=== PATIENT | female | born 1950 | race Caucasian/White ===

== ENCOUNTER 2017-05-02 14:48 | Emergency (ER) | payer MEDICARE, OTHER ==
[~2017-05-02] VITALS: Ht 152.4 cm; Wt 66.7 kg
[~2017-05-02 14:48] MED LIST: ALPR0.5T7 PO; AML5T PO; MET50T PO; QUET100T38 PO; RIV15T PO; VENL150C PO
[2017-05-02 15:18] VITALS: BP 142/84
== END 2017-05-02 18:23 | disposition left against medical advice (07) ==
LOC: ER 14:57
DX: M79.672 Pain in left foot (principal); Z53.21 Procedure and treatment not carried out due to patient leaving prior to being seen by health care provider

== ENCOUNTER 2018-03-14 09:59 | Inpatient (IN) | payer MEDICARE, OTHER ==
[~2018-03-14] VITALS: Ht 157.5 cm; Wt 64.0 kg
[~2018-03-14 09:59] MED LIST changes: -ALPR0.5T7 PO; -AML5T PO; -MET50T PO; -QUET100T38 PO; -RIV15T PO; -VENL150C PO; +WARF6TAB21 PO
[2018-03-14 11:02] LABS: Basophils # (auto) 0 uL; Basophils % (auto) 0.8 % (0.0-2.0); Eosinophils # (auto) 0.1 uL; Eosinophils % (auto) 1.5 % (0.0-7.0); Hematocrit 49.3 % (36.0-46.0); Hemoglobin 15.7 g/dL (12.2-16.2); Lymphocytes % (auto) 16.8 % (10.0-50.0); Mean Corpuscular Hemoglobin 27.3 pg (28.0-32.0); Mean Corpuscular Hgb Conc. 31.8 g/dL (32.0-36.0); Mean Corpuscular Volume 86.1 fL (80.0-100.0); Monocytes # (auto) 0.6 uL; Monocytes % (auto) 10.7 % (0.0-12.0); Neutrophils # (auto) 4.2 uL; Neutrophils % (auto) 70.2 % (37.0-80.0); Nucleated Red Blood Cells % 0.4 %; Platelet Count (auto) 193 10^3/uL (140-450); Red Blood Cells 5.73 10^6/uL (4.0-5.20); Red Cell Distribution Width 18.6 % (11.8-14.3)
[2018-03-14 11:20] LABS: Albumin 3.3 g/dL (3.4-5.0); Anion Gap 4 (5-15); Aspartate Aminotransferase 9 U/L (15-37); BUN/Creatinine Ratio 12.2; Blood Urea Nitrogen 6 mg/dL (7-18); Calcium 8.7 mg/dL (8.5-10.1); Carbon Dioxide 35 mmol/L (21-32); Chloride 99 mmol/L (98-107); GFR African American 162 mL/min; GFR Non-African American 134 mL/min; Glucose 117 mg/dL (74-106); Sodium 138 mmol/L (136-145)
[2018-03-14 11:25] LABS: Alanine Aminotransferase 10 U/L (13-56); Alkaline Phosphatase 125 U/L (45-117); Bilirubin, Total 0.5 mg/dL (0.2-1.0); Total Protein 7.2 g/dL (6.4-8.2)
[2018-03-14] MEDS ORDERED: IPRATROPIUM BROM 0.5 MG/2.5ML INH SOL NEB ONE (13:45)
[2018-03-14] MEDS ORDERED: ALBUTEROL SULF 2.5 MG/0.5ML(0.5%) NEB SOLN NEB ONE (13:45)
[2018-03-14] MEDS ORDERED: SODIUM CHLORIDE 0.9% 1,000 ML IV ONE (13:45)
[2018-03-14 14:40] LABS: INR 1.06 (0.9-1.15); Partial Thromboplastin Time 28.9 sec (23.78-33.04); Prothrombin Time 11.3 sec (9.27-12.13)
[2018-03-14] MEDS ORDERED: MORPHINE SULFATE 4 MG/ML SYR/VIAL IV PRN (15:30)
[2018-03-14] MEDS ORDERED: MORPHINE SULFATE 4 MG/ML SYR/VIAL IV ONE (15:30)
[2018-03-14] MEDS ORDERED: ENOXAPARIN SOD 60 MG/0.6 ML SYRINGE SC ONE (15:30)
[2018-03-14] MEDS ORDERED: NITROGLYCERIN 0.4 MG SL TAB SL PRN (15:30)
[2018-03-14] MEDS ORDERED: ONDANSETRON HCL 4 MG/2 ML VIAL IV ONE (15:30)
[2018-03-14 16:05] LABS: Urine Bacteria FEW /hpf (None Seen); Urine Blood Negative /uL (Negative); Urine Specific Gravity 1.012 (1.001-1.035); Urine WBC 9 /hpf (0 - 5)
[2018-03-14] MEDS ORDERED: WARFARIN SODIUM 5 MG TAB PO ONE (17:00)
[2018-03-14] MEDS: HYDROcodone-ACET 5/325MG TAB PO PRN (17:19)
[2018-03-14] MEDS ORDERED: IOHEXOL 350 MG/ML 100ML IJ ONE (19:40)
[2018-03-14] MEDS ORDERED: cefTRIAXone 1GM/50ML D5W 50 ML IV ONE (19:45)
[2018-03-14] MEDS ORDERED: ALBUTEROL SULF 2.5 MG/0.5ML(0.5%) NEB SOLN NEB PRN (19:45)
[2018-03-14 19:51] VITALS: BP 146/34
[2018-03-14 22:00] VITALS: BP 140/75
[2018-03-14] MEDS: MORPHINE SULFATE 4 MG/ML SYR/VIAL IV PRN (22:43)
[2018-03-14] MEDS: ENOXAPARIN SOD 60 MG/0.6 ML SYRINGE SC SCH (22:43)
[2018-03-14] MEDS: CLINDAMYCIN 600MG IV 50 ML IV SCH (22:43)
[2018-03-14] MEDS: TEMAZEPAM 15 MG CAP PO PRN (22:44)
[2018-03-14 23:09] VITALS: BP 140/75
[2018-03-15] MEDS ORDERED: INFLUENZA QUAD 2018-2019 0.5 ML SYRG IM ONE
[2018-03-15] MEDS ORDERED: QUET300T14 PO (00:03)
[2018-03-15] MEDS ORDERED: ALBUAER3 IN (00:03)
[2018-03-15] MEDS ORDERED: METO-169 PO (00:03)
[2018-03-15] MEDS ORDERED: VENL150C2 PO (00:03)
[2018-03-15] MEDS: IPRATROPIUM BROM 0.5 MG/2.5ML INH SOL NEB SCH ×4 (00:21→19:32)
[2018-03-15] MEDS: ALBUTEROL SULF 2.5 MG/0.5ML(0.5%) NEB SOLN NEB SCH ×4 (00:21→19:32)
[2018-03-15] MEDS: MORPHINE SULFATE 4 MG/ML SYR/VIAL IV PRN ×5 (04:33→22:01)
[2018-03-15 05:00] VITALS: BP 143/63
[2018-03-15] MEDS: CLINDAMYCIN 600MG IV 50 ML IV SCH (05:57)
[2018-03-15] MEDS: ONDANSETRON HCL 4 MG/2 ML VIAL IV PRN (06:20)
[2018-03-15 07:53] LABS: Cholesterol 137 mg/dL (< 200); HDL Cholesterol 57 mg/dL (40-59); LDL Cholesterol 63 mg/dL (< 100); Triglycerides 103 mg/dL (< 150)
[2018-03-15 09:00] VITALS: BP 143/75
[2018-03-15] MEDS ORDERED: cefTRIAXone 1GM/50ML D5W 50 ML IV SCH (09:00)
[2018-03-15 09:04] LABS: Basophils # (auto) 0 uL; Basophils % (auto) 0.3 % (0.0-2.0); Eosinophils # (auto) 0.1 uL; Eosinophils % (auto) 1.7 % (0.0-7.0); Hemoglobin 14.3 g/dL (12.2-16.2); Lymphocytes % (auto) 15.6 % (10.0-50.0); Mean Corpuscular Hgb Conc. 31.1 g/dL (32.0-36.0); Monocytes # (auto) 0.7 uL; Monocytes % (auto) 11.8 % (0.0-12.0); Neutrophils # (auto) 4.5 uL; Neutrophils % (auto) 70.6 % (37.0-80.0); Nucleated Red Blood Cells % 0.1 %; Platelet Count (auto) 173 10^3/uL (140-450); Red Blood Cells 5.29 10^6/uL (4.0-5.20); Red Cell Distribution Width 18.6 % (11.8-14.3); White Blood Cell 6.3 10^3/uL (4.4-10.8)
[2018-03-15 09:08] LABS: Albumin 2.7 g/dL (3.4-5.0); BUN/Creatinine Ratio 19.4; Calcium 8.1 mg/dL (8.5-10.1); Potassium 3.9 mmol/L (3.5-5.1)
[2018-03-15 09:11] LABS: Bilirubin, Total 0.3 mg/dL (0.2-1.0); Total Protein 6.1 g/dL (6.4-8.2)
[2018-03-15] MEDS: PANTOPRAZOLE 40 MG TAB PO SCH (09:19)
[2018-03-15] MEDS: ENOXAPARIN SOD 60 MG/0.6 ML SYRINGE SC SCH (09:20)
[2018-03-15 10:13] LABS: INR 1.14 (0.9-1.15); Prothrombin Time 12.1 sec (9.27-12.13)
[2018-03-15] MEDS ORDERED: METOPROLOL SUCCINATE XL 50 MG TAB PO ONE (12:45)
[2018-03-15 12:48] VITALS: BP 145/81
[2018-03-15] MEDS ORDERED: PATIENTS OWN MEDICATION PO PRN (13:15)
[2018-03-15] MEDS: HYDROcodone-ACET 5/325MG TAB PO PRN ×2 (14:30→20:22)
[2018-03-15 17:00] VITALS: BP 136/80
[2018-03-15] MEDS ORDERED: FIORICET PO PRN (18:00)
[2018-03-15 21:33] VITALS: BP 148/80
[2018-03-15] MEDS: APIXABAN 5 MG TAB PO SCH (22:00)
[2018-03-15] MEDS ORDERED: GABAPENTIN 300 MG CAP PO SCH (22:00)
[2018-03-16] MEDS: LORazepam 0.5 MG TAB PO PRN ×2 (00:10→23:29)
[2018-03-16] MEDS: IPRATROPIUM BROM 0.5 MG/2.5ML INH SOL NEB SCH ×4 (01:15→18:25)
[2018-03-16] MEDS: ALBUTEROL SULF 2.5 MG/0.5ML(0.5%) NEB SOLN NEB SCH ×4 (01:15→18:25)
[2018-03-16] MEDS: MORPHINE SULFATE 4 MG/ML SYR/VIAL IV PRN ×2 (01:55→06:28)
[2018-03-16 04:34] VITALS: BP 141/84
[2018-03-16] MEDS: HYDROmorphone HCL 2 MG/ML VL IV PRN ×6 (08:10→23:28)
[2018-03-16] MEDS: ONDANSETRON HCL 4 MG/2 ML VIAL IV PRN (08:35)
[2018-03-16 09:00] VITALS: BP 147/82
[2018-03-16] MEDS ORDERED: GABA300C10 PO (10:00)
[2018-03-16] MEDS ORDERED: MEPERIDINE HCL (50 MG/ML) 1 ML VIAL IM ONE (10:00)
[2018-03-16] MEDS ORDERED: APIX5TAB PO (10:00)
[2018-03-16] MEDS: HYDROcodone-ACET 5/325MG TAB PO PRN ×3 (10:37→22:01)
[2018-03-16] MEDS: APIXABAN 5 MG TAB PO SCH ×2 (10:38→21:59)
[2018-03-16] MEDS: METOPROLOL SUCCINATE XL 50 MG TAB PO SCH (10:39)
[2018-03-16] MEDS: PANTOPRAZOLE 40 MG TAB PO SCH (10:39)
[2018-03-16 12:56] VITALS: BP 126/76
[2018-03-16] MEDS: GABAPENTIN 300 MG CAP PO SCH ×2 (14:00→22:00)
[2018-03-16 17:00] VITALS: BP 140/79
[2018-03-16 21:39] VITALS: BP 136/74
[2018-03-17] MEDS: ALBUTEROL SULF 2.5 MG/0.5ML(0.5%) NEB SOLN NEB SCH ×4 (00:49→19:22)
[2018-03-17] MEDS: IPRATROPIUM BROM 0.5 MG/2.5ML INH SOL NEB SCH ×4 (00:49→19:22)
[2018-03-17] MEDS: HYDROmorphone HCL 2 MG/ML VL IV PRN (02:53)
[2018-03-17 04:51] VITALS: BP 135/75
[2018-03-17] MEDS: GABAPENTIN 300 MG CAP PO SCH ×3 (05:37→21:06)
[2018-03-17] MEDS: HYDROcodone-ACET 5/325MG TAB PO PRN ×4 (05:38→21:07)
[2018-03-17 07:56] VITALS: BP 137/75
[2018-03-17] MEDS: PANTOPRAZOLE 40 MG TAB PO SCH (09:41)
[2018-03-17] MEDS: METOPROLOL SUCCINATE XL 50 MG TAB PO SCH (09:41)
[2018-03-17] MEDS: LORazepam 0.5 MG TAB PO PRN ×2 (09:43→16:53)
[2018-03-17] MEDS: APIXABAN 5 MG TAB PO SCH ×2 (09:43→21:06)
[2018-03-17 12:51] VITALS: BP 143/84
[2018-03-17] MEDS: ACETAMINOPHEN 500 MG TAB PO PRN (16:54)
[2018-03-17 17:14] VITALS: BP 146/91
[2018-03-17] MEDS: ASCORBIC ACID 500 MG TAB PO SCH (21:06)
[2018-03-17 21:56] VITALS: BP 136/78
[2018-03-17] MEDS: TEMAZEPAM 15 MG CAP PO PRN (22:40)
[2018-03-17 23:25] VITALS: BP 136/78
[2018-03-18] MEDS: HYDROcodone-ACET 5/325MG TAB PO PRN ×4 (01:43→20:18)
[2018-03-18] MEDS: GABAPENTIN 300 MG CAP PO SCH (04:43)
[2018-03-18 05:00] VITALS: BP 148/84
[2018-03-18] MEDS: IPRATROPIUM BROM 0.5 MG/2.5ML INH SOL NEB SCH ×4 (06:30→18:52)
[2018-03-18] MEDS: ALBUTEROL SULF 2.5 MG/0.5ML(0.5%) NEB SOLN NEB SCH ×4 (06:30→18:52)
[2018-03-18] MEDS: ACETAMINOPHEN 500 MG TAB PO PRN ×2 (06:37→13:11)
[2018-03-18 08:17] VITALS: BP 142/82
[2018-03-18] MEDS: ASCORBIC ACID 500 MG TAB PO SCH ×2 (09:14→20:17)
[2018-03-18] MEDS: PANTOPRAZOLE 40 MG TAB PO SCH (09:15)
[2018-03-18] MEDS: LORazepam 0.5 MG TAB PO PRN (09:15)
[2018-03-18] MEDS: MULTIPLE VITAMIN TAB PO SCH (09:15)
[2018-03-18] MEDS: APIXABAN 5 MG TAB PO SCH ×2 (09:16→20:17)
[2018-03-18] MEDS: METOPROLOL SUCCINATE XL 50 MG TAB PO SCH (09:17)
[2018-03-18 12:22] VITALS: BP 138/90
[2018-03-18] MEDS: GABAPENTIN 400 MG CAP PO SCH ×2 (13:56→20:17)
[2018-03-18 16:41] VITALS: BP 134/70
[2018-03-18 22:00] VITALS: BP 126/66
[2018-03-19] MEDS: IPRATROPIUM BROM 0.5 MG/2.5ML INH SOL NEB SCH ×4 (00:40→19:25)
[2018-03-19] MEDS: ALBUTEROL SULF 2.5 MG/0.5ML(0.5%) NEB SOLN NEB SCH ×4 (00:40→19:25)
[2018-03-19] MEDS: TEMAZEPAM 15 MG CAP PO PRN (01:37)
[2018-03-19] MEDS: HYDROcodone-ACET 5/325MG TAB PO PRN ×4 (01:37→21:34)
[2018-03-19 05:00] VITALS: BP 132/71
[2018-03-19] MEDS: GABAPENTIN 400 MG CAP PO SCH ×3 (05:31→21:34)
[2018-03-19 06:07] LABS: Basophils # (auto) 0 uL; Eosinophils # (auto) 0.2 uL; Lymphocytes # (auto) 1.2 uL; Monocytes # (auto) 0.7 uL
[2018-03-19 06:11] LABS: Basophils % (auto) 0.8 % (0.0-2.0); Eosinophils % (auto) 3.8 % (0.0-7.0); Hematocrit 47.4 % (36.0-46.0); Hemoglobin 15.2 g/dL (12.2-16.2); Lymphocytes % (auto) 23.6 % (10.0-50.0); Mean Corpuscular Hemoglobin 27.3 pg (28.0-32.0); Mean Corpuscular Hgb Conc. 32.1 g/dL (32.0-36.0); Mean Corpuscular Volume 85.1 fL (80.0-100.0); Neutrophils # (auto) 2.9 uL; Neutrophils % (auto) 57.8 % (37.0-80.0); Platelet Count (auto) 156 10^3/uL (140-450); Red Blood Cells 5.56 10^6/uL (4.0-5.20); White Blood Cell 5.1 10^3/uL (4.4-10.8)
[2018-03-19 06:17] LABS: Red Cell Distribution Width 18.8 % (11.8-14.3)
[2018-03-19 06:31] LABS: Potassium 3.8 mmol/L (3.5-5.1)
[2018-03-19 06:36] LABS: Albumin 2.9 g/dL (3.4-5.0); BUN/Creatinine Ratio 24.5; Calcium 8.5 mg/dL (8.5-10.1)
[2018-03-19 06:47] LABS: Bilirubin, Total 0.3 mg/dL (0.2-1.0); Total Protein 6.7 g/dL (6.4-8.2)
[2018-03-19 09:00] VITALS: BP 124/67
[2018-03-19] MEDS: APIXABAN 5 MG TAB PO SCH ×2 (09:50→21:34)
[2018-03-19] MEDS: PANTOPRAZOLE 40 MG TAB PO SCH (09:50)
[2018-03-19] MEDS: MULTIPLE VITAMIN TAB PO SCH (09:50)
[2018-03-19] MEDS: ASCORBIC ACID 500 MG TAB PO SCH ×2 (09:51→21:33)
[2018-03-19] MEDS: METOPROLOL SUCCINATE XL 50 MG TAB PO SCH (09:51)
[2018-03-19] MEDS ORDERED: SODIUM CHLORIDE 0.9% 1,000 ML IV ONE (13:45)
[2018-03-19 14:37] VITALS: BP 120/64
[2018-03-19] MEDS ORDERED: IOHEXOL 350 MG/ML 100ML IJ ONE (14:53)
[2018-03-19 17:00] VITALS: BP 138/62
[2018-03-19 21:15] VITALS: BP 135/78
[2018-03-20] VITALS (7 sets, daily range): BP systolic 113–129; BP diastolic 66–91
[2018-03-20] MEDS: IPRATROPIUM BROM 0.5 MG/2.5ML INH SOL NEB SCH ×4 (00:21→20:16)
[2018-03-20] MEDS: ALBUTEROL SULF 2.5 MG/0.5ML(0.5%) NEB SOLN NEB SCH ×4 (00:21→20:16)
[2018-03-20] MEDS: GABAPENTIN 400 MG CAP PO SCH (05:37)
[2018-03-20] MEDS: HYDROcodone-ACET 5/325MG TAB PO PRN ×4 (05:38→23:48)
[2018-03-20] MEDS: MULTIPLE VITAMIN TAB PO SCH (10:19)
[2018-03-20] MEDS: PANTOPRAZOLE 40 MG TAB PO SCH (10:19)
[2018-03-20] MEDS: APIXABAN 5 MG TAB PO SCH ×2 (10:19→22:06)
[2018-03-20] MEDS: ASCORBIC ACID 500 MG TAB PO SCH ×2 (10:20→22:06)
[2018-03-20] MEDS: METOPROLOL SUCCINATE XL 50 MG TAB PO SCH (10:20)
[2018-03-20] MEDS: BUDESONIDE (INHALATION) 0.5 MG/2 ML NEB NEB SCH ×2 (11:53→20:17)
[2018-03-20] MEDS: TEMAZEPAM 15 MG CAP PO PRN (22:06)
[2018-03-20] MEDS: LORazepam 0.5 MG TAB PO PRN (22:44)
[2018-03-21] MEDS: ALBUTEROL SULF 2.5 MG/0.5ML(0.5%) NEB SOLN NEB SCH ×5 (00:23→19:22)
[2018-03-21] MEDS: IPRATROPIUM BROM 0.5 MG/2.5ML INH SOL NEB SCH ×5 (00:23→19:22)
[2018-03-21] MEDS: HYDROcodone-ACET 5/325MG TAB PO PRN ×2 (05:33→11:20)
[2018-03-21 05:34] VITALS: BP 100/62
[2018-03-21 08:00] VITALS: BP 129/64
[2018-03-21] MEDS: APIXABAN 5 MG TAB PO SCH ×2 (10:13→21:48)
[2018-03-21] MEDS: MULTIPLE VITAMIN TAB PO SCH (10:13)
[2018-03-21] MEDS: PANTOPRAZOLE 40 MG TAB PO SCH (10:14)
[2018-03-21] MEDS: ASCORBIC ACID 500 MG TAB PO SCH ×2 (10:14→21:48)
[2018-03-21] MEDS: METOPROLOL SUCCINATE XL 50 MG TAB PO SCH (10:14)
[2018-03-21 12:00] VITALS: BP 130/77
[2018-03-21] MEDS: BUDESONIDE (INHALATION) 0.5 MG/2 ML NEB NEB SCH ×2 (13:07→19:09)
[2018-03-21] MEDS: HYDROmorphone HCL 2 MG/ML VL IV PRN ×2 (13:41→20:23)
[2018-03-21 17:00] VITALS: BP 129/77
[2018-03-21] MEDS: OXYCODONE W/ ACETAMINOPHEN 5/325MG TABLET PO PRN ×2 (17:17→21:49)
[2018-03-21 22:00] VITALS: BP 126/69
[2018-03-22] MEDS: HYDROmorphone HCL 2 MG/ML VL IV PRN ×4 (00:10→15:32)
[2018-03-22] MEDS: OXYCODONE W/ ACETAMINOPHEN 5/325MG TABLET PO PRN ×2 (01:58→08:41)
[2018-03-22 05:15] VITALS: BP 139/69
[2018-03-22] MEDS: IPRATROPIUM BROM 0.5 MG/2.5ML INH SOL NEB SCH ×2 (06:59→11:41)
[2018-03-22] MEDS: BUDESONIDE (INHALATION) 0.5 MG/2 ML NEB NEB SCH (06:59)
[2018-03-22] MEDS: ALBUTEROL SULF 2.5 MG/0.5ML(0.5%) NEB SOLN NEB SCH ×2 (06:59→11:41)
[2018-03-22 09:00] VITALS: BP 123/70
[2018-03-22] MEDS: PANTOPRAZOLE 40 MG TAB PO SCH (09:58)
[2018-03-22] MEDS: MULTIPLE VITAMIN TAB PO SCH (09:58)
[2018-03-22] MEDS: APIXABAN 5 MG TAB PO SCH (09:58)
[2018-03-22] MEDS: ASCORBIC ACID 500 MG TAB PO SCH (09:59)
[2018-03-22] MEDS ORDERED: CLOPIDOGREL BISULFATE 75 MG TAB PO SCH (10:00)
[2018-03-22] MEDS: METOPROLOL SUCCINATE XL 50 MG TAB PO SCH (10:01)
[2018-03-22] MEDS ORDERED: ALBUAER3 IN (12:02)
[2018-03-22] MEDS ORDERED: FLUT110A INH (12:02)
[2018-03-22] MEDS ORDERED: CLOP75TA28 PO (12:02)
[2018-03-22 13:00] VITALS: BP 123/83
[2018-03-22] MEDS: ONDANSETRON HCL 4 MG/2 ML VIAL IV PRN (15:32)
[2018-03-22] MEDS ORDERED: APIXABAN 5 MG TAB PO SCH (22:00)
== END 2018-03-22 16:55 | disposition home health service (06) | DRG 299 ==
LOC: EDBD 09:59 → ER 09:59 → TELE 15:27 → TELE-WESTW 21:05
PROVIDERS: ADMIT Internal Medicine; ATTEND Internal Medicine
DX: I70.201 Unspecified atherosclerosis of native arteries of extremities, right leg (principal); J96.01 Acute respiratory failure with hypoxia; A20.9 Plague, unspecified; I82.402 Acute embolism and thrombosis of unspecified deep veins of left lower extremity; J44.1 Chronic obstructive pulmonary disease with (acute) exacerbation; N39.0 Urinary tract infection, site not specified; E44.0 Moderate protein-calorie malnutrition; I70.92 Chronic total occlusion of artery of the extremities; I70.0 Atherosclerosis of aorta; I10 Essential (primary) hypertension; F17.210 Nicotine dependence, cigarettes, uncomplicated; G25.81 Restless legs syndrome; G62.9 Polyneuropathy, unspecified; Z68.25 Body mass index [BMI] 25.0-25.9, adult; Z88.1 Allergy status to other antibiotic agents; Z88.8 Allergy status to other drugs, medicaments and biological substances; Z82.3 Family history of stroke; Z86.718 Personal history of other venous thrombosis and embolism; Z86.73 Personal history of transient ischemic attack (TIA), and cerebral infarction without residual deficits; Z90.49 Acquired absence of other specified parts of digestive tract
CPT/HCPCS: 36415; 36600; 71046; 71275; 75635; 80053; 80061; 81001; 81241; 82805; 83735; 83880; 84443; 84484; 85025; 85379; 85610; 85613; 85670; 85705; 85730; 85732; 87040; 87081; 87086; 87804; 93005; 93926; 93971; 94640; 96361; 96365; 96367; 96372; 96375; 97110; 97116; 97530; A6257; G0378; J0696; J2405; J3490

== ENCOUNTER → 2018-07-10 | Outpatient (CLI) | payer MEDICARE, OTHER ==
[~2018-07-10] MED LIST changes: +ALBUAER3 IN; +APIX5TAB PO; +CLOP75TA28 PO; +FLUT110A INH; +METO-169 PO; +QUET300T14 PO; +VENL150C2 PO; -WARF6TAB21 PO
== END | disposition home or self-care (01) ==
LOC: Rad HDHVI 13:08
PROVIDERS: ATTEND Internal Medicine Cardiovascular Disease
DX: I65.23 Occlusion and stenosis of bilateral carotid arteries (principal); I07.1 Rheumatic tricuspid insufficiency; I11.0 Hypertensive heart disease with heart failure; I50.22 Chronic systolic (congestive) heart failure; J44.9 Chronic obstructive pulmonary disease, unspecified
CPT/HCPCS: 93306; 93880; 93926

== ENCOUNTER → 2018-09-05 | Outpatient (CLI) | payer MEDICARE, OTHER ==
[~2018-09-05] VITALS: Ht 152.4 cm; Wt 65.8 kg
[~2018-09-05] MED LIST changes: +ADENOSINE 55 MG in GIVE UN-DILUTED 0 ML IV ONE; +ADENOSINE 90 MG/30 ML INJ IV ONE; +ALBUTEROL SULF 2.5 MG/0.5ML(0.5%) NEB SOLN ONE
== END | disposition home or self-care (01) ==
LOC: Rad HDHVI 12:59
PROVIDERS: ATTEND Internal Medicine Cardiovascular Disease
DX: I82.409 Acute embolism and thrombosis of unspecified deep veins of unspecified lower extremity (principal); E78.5 Hyperlipidemia, unspecified; I11.0 Hypertensive heart disease with heart failure; I50.22 Chronic systolic (congestive) heart failure; R06.2 Wheezing; I73.9 Peripheral vascular disease, unspecified
CPT/HCPCS: 78452; 93005; 94640; 96374; 96375; A9500; J0153; J7611

== ENCOUNTER → 2018-10-01 | Outpatient (CLI) | payer MEDICARE, OTHER ==
[~2018-10-01] MED LIST changes: -ADENOSINE 55 MG in GIVE UN-DILUTED 0 ML IV ONE; -ADENOSINE 90 MG/30 ML INJ IV ONE; -ALBUTEROL SULF 2.5 MG/0.5ML(0.5%) NEB SOLN ONE; +CLON0.1T PO
[2018-10-01 10:12] VITALS: BP 114/66
[2018-10-01 10:35] VITALS: BP 111/66
--- NOTE | 2018-10-01 10:35 | NUR ---
PRE-OP FOR LEFT LE [facility]GIO FOR 10/04/18. Pre-Op Discharge Summary: See e-MAR for any medications given for this visit. Pre-op orders received and carried out per MD of EKG, LABS and chest xrays. Patient given a copy of EKG with instructions to go to H out patient for further follow up care.
[2018-10-01 12:15] LABS: Basophils # (auto) 0 uL; Basophils % (auto) 0.8 % (0.0-2.0); Eosinophils # (auto) 0.3 uL; Eosinophils % (auto) 4.1 % (0.0-7.0); Hematocrit 47.6 % (36.0-46.0); Hemoglobin 15.7 g/dL (12.2-16.2); Lymphocytes % (auto) 30.9 % (10.0-50.0); Mean Corpuscular Hemoglobin 30.8 pg (28.0-32.0); Mean Corpuscular Volume 93.3 fL (80.0-100.0); Monocytes # (auto) 0.6 uL; Monocytes % (auto) 9.4 % (0.0-12.0); Neutrophils # (auto) 3.5 uL; Neutrophils % (auto) 54.8 % (37.0-80.0); Platelet Count (auto) 180 10^3/uL (140-450); Red Cell Distribution Width 14.9 % (11.8-14.3); White Blood Cell 6.3 10^3/uL (4.4-10.8)
[2018-10-01 12:29] LABS: INR 0.98 (0.9-1.15); Prothrombin Time 10.6 sec (9.06-12.60)
[2018-10-01 13:08] LABS: BUN/Creatinine Ratio 23.9; Calcium 8.6 mg/dL (8.5-10.1); Potassium 4.2 mmol/L (3.5-5.1)
== END | disposition home or self-care (01) ==
LOC: CHF HDHVI 10:03
PROVIDERS: ATTEND Internal Medicine Cardiovascular Disease
DX: Z01.812 Encounter for preprocedural laboratory examination (principal); D64.9 Anemia, unspecified; R79.1 Abnormal coagulation profile; I10 Essential (primary) hypertension; I73.9 Peripheral vascular disease, unspecified; G62.9 Polyneuropathy, unspecified
CPT/HCPCS: 36415; 80048; 85025; 85610; 85730; 93005; G0463

== ENCOUNTER 2018-10-04 07:43 | Day surgery (SDC) | payer MEDICARE, OTHER ==
[~2018-10-04] VITALS: Ht 152.4 cm; Wt 66.7 kg
[~2018-10-04 07:43] MED LIST changes: -CLOP75TA28 PO
[2018-10-04] MEDS ORDERED: ANGIOMAX 250 MG VIAL IV ONE (09:59)
[2018-10-04] MEDS ORDERED: SODIUM CHL 0.9% 50 ML ONE (10:00)
[2018-10-04] MEDS ORDERED: fentaNYL CITRATE 100 MCG/2 ML VL ONE (10:00)
[2018-10-04] MEDS ORDERED: MIDAZOLAM HCL 1MG/1ML-2 ML VIAL ONE (10:00)
[2018-10-04] MEDS ORDERED: IOHEXOL 350 MG/ML 100ML IJ ONE (10:01)
[2018-10-04] MEDS ORDERED: LIDOCAINE 2%HCL (LOCAL ANESTH.) INJ 20ML MDV ONE (10:01)
[2018-10-04] MEDS ORDERED: diphenhdrAMINE HCL 50 MG/1 ML VL ONE (10:03)
== END 2018-10-04 13:00 | disposition home or self-care (01) ==
LOC: CATH 07:43
PROVIDERS: ATTEND Internal Medicine Cardiovascular Disease
DX: I70.211 Atherosclerosis of native arteries of extremities with intermittent claudication, right leg (principal); I11.0 Hypertensive heart disease with heart failure; I50.9 Heart failure, unspecified; G45.9 Transient cerebral ischemic attack, unspecified; J44.9 Chronic obstructive pulmonary disease, unspecified; F32.9 Major depressive disorder, single episode, unspecified; F41.9 Anxiety disorder, unspecified; E78.5 Hyperlipidemia, unspecified; M19.90 Unspecified osteoarthritis, unspecified site; Z87.891 Personal history of nicotine dependence; Z86.79 Personal history of other diseases of the circulatory system; Z79.899 Other long term (current) drug therapy; Z98.890 Other specified postprocedural states; Z82.49 Family history of ischemic heart disease and other diseases of the circulatory system; Z81.1 Family history of alcohol abuse and dependence
CPT/HCPCS: 36247; 75716; C1760; C1769; C1894; J0583; J1200; J1644; J2250; J3010; J7030; Q9967; 99152

== ENCOUNTER → 2019-02-08 | Outpatient (CLI) | payer MEDICARE, OTHER | END | disposition home or self-care (01) | LOC: Rad HDHVI 07:55 | PROVIDERS: ATTEND Internal Medicine Cardiovascular Disease | DX: J44.9 Chronic obstructive pulmonary disease, unspecified (principal); R06.02 Shortness of breath; I10 Essential (primary) hypertension | CPT/HCPCS: 93306 ==

== ENCOUNTER 2019-08-12 10:15 | Inpatient (IN) | payer MEDICARE, OTHER ==
[~2019-08-12] VITALS: Ht 149.9 cm; Wt 72.3 kg
[2019-08-12] MEDS ORDERED: SODIUM CHLORIDE 0.9% 1,000 ML IV ONE (10:19)
[2019-08-12] MEDS ORDERED: AZITHROMYCIN 500MG/ 250ML 250 ML IV ONE (10:30)
[2019-08-12] MEDS ORDERED: cefTRIAXone 1GM/50ML D5W 50 ML IV ONE (10:30)
[2019-08-12] MEDS ORDERED: IPRATROPIUM BROM 0.5 MG/2.5ML INH SOL NEB ONE (10:30)
[2019-08-12] MEDS ORDERED: methylPREDNISolone SOD SUCC 125 MG/2 ML VL IV ONE (10:30)
[2019-08-12] MEDS ORDERED: ALBUTEROL SULF 2.5 MG/0.5ML(0.5%) NEB SOLN NEB ONE (10:30)
[2019-08-12 10:35] LABS: Basophils # (auto) 0 10 ^3/uL (0-0.2); Basophils % (auto) 0.4 % (0.0-2.0); Eosinophils # (auto) 0.1 10 ^3/uL (0-0.8); Eosinophils % (auto) 1.1 % (0.0-7.0); Hematocrit 52.5 % (36.0-46.0); Hemoglobin 17.1 g/dL (12.2-16.2); Lymphocytes % (auto) 13.9 % (10.0-50.0); Mean Corpuscular Hemoglobin 29.7 pg (28.0-32.0); Mean Corpuscular Hgb Conc. 32.5 g/dL (32.0-36.0); Mean Corpuscular Volume 91.6 fL (80.0-100.0); Monocytes # (auto) 0.6 10 ^3/uL (0-1.3); Monocytes % (auto) 8.5 % (0.0-12.0); Neutrophils # (auto) 5.4 10 ^3/uL (1.6-8.6); Neutrophils % (auto) 76.1 % (37.0-80.0); Platelet Count (auto) 162 10^3/uL (140-450); Red Blood Cells 5.74 10^6/uL (4.0-5.20); Red Cell Distribution Width 16.1 % (11.8-14.3)
[2019-08-12 10:52] LABS: Albumin 3.5 g/dL (3.4-5.0); Anion Gap 5 (5-15); Blood Urea Nitrogen 9 mg/dL (7-18); Calcium 8.9 mg/dL (8.5-10.1); Carbon Dioxide 30 mmol/L (21-32); Chloride 103 mmol/L (98-107); Glucose 129 mg/dL (74-106); INR 1.11 (0.9-1.15); Partial Thromboplastin Time 32.5 sec (23.64-32.05); Potassium 3.8 mmol/L (3.5-5.1); Sodium 138 mmol/L (136-145)
[2019-08-12 10:59] LABS: Alanine Aminotransferase 21 U/L (13-56); Alkaline Phosphatase 111 U/L (45-117); Aspartate Aminotransferase 22 U/L (15-37); BUN/Creatinine Ratio 16.7; GFR African American 144 mL/min; GFR Non-African American 119 mL/min; Total Protein 7.3 g/dL (6.4-8.2)
[2019-08-12 11:42] LABS: Urine Bacteria NONE SEEN /hpf (None Seen); Urine Blood Negative /uL (Negative); Urine Mucus FEW (None Seen); Urine Specific Gravity 1.024 (1.001-1.035); Urine WBC 2 /hpf (0 - 5)
[2019-08-12] MEDS ORDERED: IOHEXOL 350 MG/ML 100ML IJ ONE (11:47)
[2019-08-12] MEDS ORDERED: HYDROcodone-ACET 5/325MG TAB PO ONE (12:15)
[2019-08-12] MEDS ORDERED: MORPHINE SULF INJ 2 MG/ML SYRINGE 1ML IV PRN (12:45)
[2019-08-12] MEDS ORDERED: ONDANSETRON HCL 4 MG/2 ML VIAL IV PRN (12:45)
[2019-08-12] MEDS ORDERED: NITROGLYCERIN 0.4 MG SL TAB SL PRN (12:45)
[2019-08-12] MEDS ORDERED: ACETAMINOPHEN 500 MG TAB PO PRN (12:45)
[2019-08-12] MEDS ORDERED: LABETALOL HCL 5 MG/ML 4ML SYRINGE IV ONE (15:00)
[2019-08-12 15:23] VITALS: BP 177/97
[2019-08-12 15:29] VITALS: BP 167/102
--- NOTE | 2019-08-12 15:30 | NUR ---
Telemetry admit from ER LITTLEMAIDA P admitted to Telemetry unit after SBAR received. Patient oriented to Veronica Landa, RN primary RN, unit, room, bed, and unit policies regarding patient care and visiting hours. Patient now on continuous telemetry monitoring, tele box # 80. Patient placed on bedside oxygen, weighed by bedscale and encouraged to call if they need something. All questions and concerns addressed, patient verbalized understanding. Bed is set in lowest locked position with side rails up x 2 for safety and call light is within reach.
[2019-08-12] MEDS ORDERED: hydrALAZINE HCL 20 MG/ML VL IV PRN (17:00)
[2019-08-12 17:06] VITALS: BP 167/102
[2019-08-12] MEDS ORDERED: PERCOT PO (17:24)
[2019-08-12] MEDS: MORPHINE SULF INJ 2 MG/ML SYRINGE 1ML IV PRN ×2 (18:06→22:24)
[2019-08-12 18:07] VITALS: BP 157/85
--- NOTE | 2019-08-12 18:09 | NUR ---
Pain assessment Patient reports pain level is a 7/10 on a scale of 1-10. Patient reports pain is located in the neck and upper back region, this is chronic pain. Per MD orders administered morphine 1 mg and re-positioned patient to a more comfortable position. Will re-assess pain and continue to monitor patient.
--- NOTE | 2019-08-12 18:37 | NUR ---
Pain re-assessment Patient reports pain is a 4/10 on a scale of 1-10. Patient states this is a comfortable level and she "feels much better".
[2019-08-12] MEDS: IPRATROPIUM BROM 0.5 MG/2.5ML INH SOL NEB SCH (19:08)
[2019-08-12] MEDS: BUDESONIDE (INHALATION) 0.5 MG/2 ML NEB NEB SCH (19:08)
[2019-08-12] MEDS: ALBUTEROL SULF 2.5 MG/0.5ML(0.5%) NEB SOLN NEB SCH (19:08)
--- NOTE | 2019-08-12 19:17 | NUR ---
Care endorsed to NOC RN.
--- NOTE | 2019-08-12 19:25 | NUR ---
Opening Shift Note Assumed care of patient, awake and alert. No S/S of distress/SOB or pain. POC discussed and questions answered. Bed is locked in lowest position with side rails up x2 with bed alarm on for safety. Call light is within reach and patient is encouraged to call for assistance PRN, will continue to monitor for changes Q1hr and PRN.
[2019-08-12 22:00] VITALS: BP 156/75
[2019-08-12] MEDS: METOPROLOL SUCCINATE XL 50 MG TAB PO SCH (22:20)
[2019-08-12] MEDS: methylPREDNISolone SOD SUCC 125 MG/2 ML VL IV SCH (22:20)
[2019-08-12] MEDS: QUEtiapine FUMARATE 100 MG TAB PO SCH (22:20)
[2019-08-12] MEDS: APIXABAN 5 MG TAB PO SCH (22:20)
[2019-08-12] MEDS: TEMAZEPAM 15 MG CAP PO PRN (22:42)
[2019-08-13 05:00] VITALS: BP 135/75
[2019-08-13] MEDS: MORPHINE SULF INJ 2 MG/ML SYRINGE 1ML IV PRN ×2 (05:25→20:26)
[2019-08-13 05:40] LABS: Basophils # (auto) 0 10 ^3/uL (0-0.2); Basophils % (auto) 0.1 % (0.0-2.0); Eosinophils # (auto) 0 10 ^3/uL (0-0.8); Hematocrit 47.3 % (36.0-46.0); Hemoglobin 15.4 g/dL (12.2-16.2); Lymphocytes # (auto) 0.6 10 ^3/uL (0.4-5.4); Lymphocytes % (auto) 8.7 % (10.0-50.0); Mean Corpuscular Hemoglobin 29.8 pg (28.0-32.0); Mean Corpuscular Hgb Conc. 32.6 g/dL (32.0-36.0); Mean Corpuscular Volume 91.4 fL (80.0-100.0); Monocytes # (auto) 0.1 10 ^3/uL (0-1.3); Neutrophils % (auto) 89.2 % (37.0-80.0); Nucleated Red Blood Cells % 0.1 %; Platelet Count (auto) 142 10^3/uL (140-450); Red Blood Cells 5.18 10^6/uL (4.0-5.20); Red Cell Distribution Width 16.1 % (11.8-14.3); White Blood Cell 6.7 10^3/uL (4.4-10.8)
[2019-08-13 05:53] LABS: Calcium 8.5 mg/dL (8.5-10.1)
[2019-08-13] MEDS: BUDESONIDE (INHALATION) 0.5 MG/2 ML NEB NEB SCH ×2 (07:05→18:57)
[2019-08-13] MEDS: ALBUTEROL SULF 2.5 MG/0.5ML(0.5%) NEB SOLN NEB SCH ×3 (07:05→18:57)
[2019-08-13] MEDS: IPRATROPIUM BROM 0.5 MG/2.5ML INH SOL NEB SCH ×3 (07:05→18:57)
--- NOTE | 2019-08-13 07:19 | NUR ---
Opening Shift Note Assumed care of patient, resting in bed with eyes closed. No S/S of distress/SOB or pain. Patient is on 5L/min oxymizer, bed is set in lowest locked position with side rails up x 2 for safety and call light is within reach. Will continue to monitor for changes Q1hr and PRN.
[2019-08-13 08:00] VITALS: BP 126/68
[2019-08-13] MEDS: methylPREDNISolone SOD SUCC 125 MG/2 ML VL IV SCH ×2 (09:35→22:04)
[2019-08-13] MEDS: AZITHROMYCIN 500MG/ 250ML 250 ML IV SCH (09:37)
[2019-08-13] MEDS: FAMOTIDINE 20 MG TAB PO SCH (09:40)
[2019-08-13] MEDS: APIXABAN 5 MG TAB PO SCH ×2 (09:41→22:04)
[2019-08-13] MEDS: METOPROLOL SUCCINATE XL 50 MG TAB PO SCH ×2 (09:41→22:05)
[2019-08-13] MEDS: HYDROcodone-ACET 5/325MG TAB PO PRN ×2 (10:23→16:35)
--- NOTE | 2019-08-13 10:26 | NUR ---
Pain assessment Patient reports pain level 6/10 on a scale of 1-10. Pain is located in upper back and neck region, patient states this is a chronic pain. Per MD orders administered arnold 5/325. Will continue to monitor and re-assess patient for pain level.
--- NOTE | 2019-08-13 11:23 | NUR ---
Pain re-assessment Patient reports pain is a level 5/10. States this level is tolerable and patient is comfortable.
--- NOTE | 2019-08-13 11:39 | NUR ---
IV insertion IV access obtained, via clean sterile technique by inserting 22 gauge catheter at right forearm after 1 attempt. IV secured properly. No trauma to site. Patient tolerated well.
[2019-08-13 12:00] VITALS: BP 132/89
[2019-08-13] MEDS ORDERED: CEFTRIAXONE SODIUM 2 GM in D5W 5% 50 ML IV ONE (13:00)
--- NOTE | 2019-08-13 13:22 | NUR ---
MD at bedside for pulmonary consultation Dr. Rodriguez, updated pt on POC.
[2019-08-13] MEDS ORDERED: cefTRIAXone 1GM/50ML D5W 50 ML IV ONE (13:45)
[2019-08-13] MEDS: NICOTINE 14 MG/24HR TOPICAL PATCH TD SCH (14:57)
--- NOTE | 2019-08-13 15:50 | NUR ---
WOUND CARE NOTE: Wound care in to see patient per wound care request regarding "wound to Rt great toe and left second toe" that are noted present on admission. Bedside nurse took photograph of patient's wounds for reference. Patient is 69 years old female with admitting diagnosis of Acute Hypoxic Resp Failure. Patient is resting in bed in Rm. 276A. Patient is awake, alert and oriented. Patient is in no stated pain at this time. She's ambulatory with cane and self turning and repositioning. Her Cuong score is 20. Noted patient's bilateral toe nails are long. She has dry scabbed wound to distal R great toe and lateral side/base of L 2nd toe, sofia wound is pink, no drainage/odor noted. Patient reported that her "sister's friend" clipping her toe nails and cut it too short as "her hands shakes" injuring her toes. Patient denies DM. ZOFIA Martin cleansed patient's scabbed toes with Betadine. Patient skin/wound education provided, encouraged to have her to nails trim by experienced/licensed nail refugio as she is more prone in hurting her toes due to long toe nails. Patient verbalized understanding. Patient denies any other wound. No further wound care monitoring needed. RECOMMENDATION: Daily/PRN cleaning with Betadine of scabbed wound to R great toe and L 2nd toe per MD order, redistribute pressure points with pillows,reconsult for active wound, pressure injury, low Cuong score of 12 and below. Addendum: 08/13/19 at 1620 by Myranda Wick RN Amended: Links added.
[2019-08-13 16:54] VITALS: BP 143/93
[2019-08-13] MEDS ORDERED: ACETYLCYSTEINE 10 %(100MG/ML) SOL 4ML NEB SCH (18:00)
[2019-08-13] MEDS: ACETYLCYSTEINE 10 %(100MG/ML) SOL 4ML NEB SCH (18:57)
--- NOTE | 2019-08-13 19:12 | NUR ---
Care endorsed to NOC RN.
--- NOTE | 2019-08-13 19:30 | NUR ---
Opening Shift Note Assumed care of patient, awake and alert. No S/S of distress/SOB or pain. Instructed on POC and to call for assist PRN. Bed in lowest locked position, call light within reach, side rails up x2, fall precautions in place. Will continue to monitor for changes Q1hr and PRN.
[2019-08-13 22:00] VITALS: BP 151/76
[2019-08-13] MEDS: QUEtiapine FUMARATE 100 MG TAB PO SCH (22:04)
[2019-08-13] MEDS: TEMAZEPAM 15 MG CAP PO PRN (22:05)
[2019-08-14 05:00] VITALS: BP 129/75
[2019-08-14] MEDS: HYDROcodone-ACET 5/325MG TAB PO PRN ×3 (06:59→21:34)
[2019-08-14] MEDS: IPRATROPIUM BROM 0.5 MG/2.5ML INH SOL NEB SCH ×2 (07:07→19:09)
[2019-08-14] MEDS: ACETYLCYSTEINE 10 %(100MG/ML) SOL 4ML NEB SCH ×2 (07:07→19:09)
[2019-08-14] MEDS: ALBUTEROL SULF 2.5 MG/0.5ML(0.5%) NEB SOLN NEB SCH ×2 (07:07→19:09)
--- NOTE | 2019-08-14 07:20 | NUR ---
Opening shift note Assumed care of patient. Patient A&Ox4, respirations even and non-labored with no s/s of distress. Discussed POC with patient who verbalized understanding. IV flushed, patent and intact. NC at 5L. Bed lowered/locked with 2 side rails up. Will continue to monitor.
[2019-08-14 09:00] VITALS: BP 116/62
[2019-08-14] MEDS: methylPREDNISolone SOD SUCC 125 MG/2 ML VL IV SCH ×2 (09:27→21:32)
[2019-08-14] MEDS: AZITHROMYCIN 500MG/ 250ML 250 ML IV SCH (09:28)
[2019-08-14] MEDS: cefTRIAXone 1GM/50ML D5W 50 ML IV SCH (09:28)
[2019-08-14] MEDS: FAMOTIDINE 20 MG TAB PO SCH (09:29)
[2019-08-14] MEDS: APIXABAN 5 MG TAB PO SCH ×2 (09:29→21:32)
[2019-08-14] MEDS: METOPROLOL SUCCINATE XL 50 MG TAB PO SCH ×2 (09:30→21:33)
[2019-08-14] MEDS: NICOTINE 14 MG/24HR TOPICAL PATCH TD SCH (09:30)
--- NOTE | 2019-08-14 11:30 | NUR ---
Patient informed of postponed procedure Patient procedure cancelled. Informed patient of reasons why the procedure was postponed and that she was no longer NPO. Educated patient on the importance of drinking fluids. Replenished water pitcher and provided nourishment.
--- NOTE | 2019-08-14 12:08 | NUR ---
RT NOTE: PT REFUSED TX AT THIS TIME, STATING SHE WOULD RATHER EAT. SPO2 IS IN THE 80'S SINCE O2 WAS REMOVED ABOUT 30 MIN AGO FOR RA ABG. NO SIGNS OF RESPIRATORY DISTRESS NOTED. PT ALSO STATED THAT SHE DOES NOT WANT HER ABG DONE UNTIL AFTER SHE EATS. RN IS AWARE. WILL CONTINUE TO MONITOR.
[2019-08-14] MEDS: MORPHINE SULF INJ 2 MG/ML SYRINGE 1ML IV PRN ×3 (12:48→20:21)
--- NOTE | 2019-08-14 12:54 | NUR ---
Pain Patient c/o 02/21 chest, back, and eye pain. Administered Morphine 1 mg per EMAR. Will continue to monitor. Addendum: 08/14/19 at 1433 by KJ GAUTAM RN RN Wrong patient, please disregard.
[2019-08-14 13:00] VITALS: BP 140/73
[2019-08-14 16:46] VITALS: BP 158/95
[2019-08-14] MEDS: BUDESONIDE (INHALATION) 0.5 MG/2 ML NEB NEB SCH (19:09)
--- NOTE | 2019-08-14 19:30 | NUR ---
Opening Shift Note Assumed care of patient, awake, AAOx4. No S/S of distress/SOB or pain. Patient on 5L oxygen via oxymizer. Ambulatory with cane and walker at bedside. Bed in lowest locked position, side rails up x2, call light within reach. Instructed on POC and to call for assist PRN, will continue to monitor for changes Q1hr and PRN.
[2019-08-14 20:00] VITALS: BP 138/77
[2019-08-14] MEDS: QUEtiapine FUMARATE 100 MG TAB PO SCH (21:32)
[2019-08-14] MEDS: TEMAZEPAM 15 MG CAP PO PRN (21:33)
[2019-08-14 22:00] VITALS: BP 138/77
--- NOTE | 2019-08-15 00:22 | NUR ---
Respiratory note: PT REQUESTED NOT TO BE WOKEN UP FOR 0000 TX IF SLEEPING. PT SLEEPING AT THIS TIME. PT ON OXYMIZER 5LPM AT THIS TIME. NO RESP DISTRESS NOTED. WILL CONTINUE TO MONITOR PT T/O SHIFT.
[2019-08-15] MEDS: HYDROcodone-ACET 5/325MG TAB PO PRN ×2 (04:48→12:53)
[2019-08-15 05:39] VITALS: BP 136/72
[2019-08-15] MEDS: IPRATROPIUM BROM 0.5 MG/2.5ML INH SOL NEB SCH (06:13)
[2019-08-15] MEDS: ACETYLCYSTEINE 10 %(100MG/ML) SOL 4ML NEB SCH ×2 (06:13)
[2019-08-15] MEDS: ALBUTEROL SULF 2.5 MG/0.5ML(0.5%) NEB SOLN NEB SCH (06:13)
[2019-08-15] MEDS: BUDESONIDE (INHALATION) 0.5 MG/2 ML NEB NEB SCH (06:17)
--- NOTE | 2019-08-15 07:30 | NUR ---
Opening shift note Assumed care of patient. Patient A&Ox4, respirations even and non-labored with no s/s of distress. Discussed POC with patient who verbalized understanding and stated firmly that she was going home today. Provided education on the importance of securing her home oxygen, finishing the ordered tests, and the therapy prescribed by her physician. Patient further verbalized understanding. IV flushed, patent, and intact. Oxygen at 5L with 94% saturation. Bed lowered/locked with 2 side rails up. Call light within reach. Will continue to monitor.
[2019-08-15 08:00] VITALS: BP 141/72
[2019-08-15] MEDS: cefTRIAXone 1GM/50ML D5W 50 ML IV SCH (08:30)
[2019-08-15] MEDS: MORPHINE SULF INJ 2 MG/ML SYRINGE 1ML IV PRN ×4 (08:31→12:46)
--- NOTE | 2019-08-15 08:31 | NUR ---
Pain Patient requested morphine for 8 neck pain. Administered morphine 1 mg IV per EMAR. Will continue to monitor.
[2019-08-15 09:00] VITALS: BP 141/72
--- NOTE | 2019-08-15 09:15 | NUR ---
Pain reassessed Patient resting with eyes closed, respirations even and non-labored with no s/s of distress. Will continue to monitor.
[2019-08-15] MEDS ORDERED: AZITHROMYCIN 250 MG TAB PO SCH (10:00)
[2019-08-15] MEDS: NICOTINE 14 MG/24HR TOPICAL PATCH TD SCH (10:00)
[2019-08-15] MEDS: APIXABAN 5 MG TAB PO SCH (10:38)
[2019-08-15] MEDS: FAMOTIDINE 20 MG TAB PO SCH (10:39)
[2019-08-15] MEDS: METOPROLOL SUCCINATE XL 50 MG TAB PO SCH (10:39)
[2019-08-15] MEDS: methylPREDNISolone SOD SUCC 125 MG/2 ML VL IV SCH (10:40)
[2019-08-15] MEDS ORDERED: VENLAFAXINE HCL 37.5MG TABLET PO SCH (11:00)
--- NOTE | 2019-08-15 11:40 | NUR ---
Assessment Patient is a 69-year-old female who is alert and oriented. Prior to admission patient live home alone and functioned independently. Patient informed me she can care for her own ADLs. Patient informed me she has a walker, wheelchair, and cane. Per patient she will return home to her prior living arrangements post discharge and she will transport her self-home. Advised patient there is a Social Service consult for home oxygen. Informed patient clinical information will be faxed to [facility], [place]. Informed patient she has the right to participate in all discharge planning. Patient verbalized understanding and agrees to discharge plan. Faxed clinical information to [facility], [place]. Per Pamella with [facility], [place] Ph:) oxygen will be deliver to bedside between 13:30-14:00. Informed ZOFIA Joshua. Addendum: 08/15/19 at 1146 by JODY SLATER Amended: Links added.
--- NOTE | 2019-08-15 12:56 | NUR ---
Pain Patient requested morphine for 12/22 migraine pain. Prepared to administer morphine 1 mg to IV and patient decided that she would rather take [place] and refused the morphine. Returned with [place] 5/325 and administered to patient. Will continue to monitor.
[2019-08-15 13:00] VITALS: BP 139/70
--- NOTE | 2019-08-15 15:23 | NUR ---
WOUND CARE PHOTOS PATIENT REFUSED WOUND CARE PHOTOS. STATES SHE IS NOT WAITING ANY LONGER FOR HER OXYGEN DELIVERY AND IS LEAVING NOW.
--- NOTE | 2019-08-15 15:24 | NUR ---
AMA PATIENT STATED SHE IS NOT GOING TO WAIT ANY LONGER FOR THE OXYGEN TO BE DELIVERED, SHE SIGNED AMA PAPERWORK FOR OXYGEN DELIVERY. DISCHARGE PAPERWORK GIVEN TO PATIENT.
--- NOTE | 2019-08-15 15:29 | NUR ---
PATIENT DENIES TROUBLE BREATHING. STATES SHE FEELS FINE AND DOESN'T THINK SHE NEEDS OXYGEN ANYWAY. NOTIFIED JODY, SALES ENGINEERING MANAGER TO HAVE OXYGEN DELIVERED TO HOME INSTEAD OF BEDSIDE.
--- NOTE | 2019-08-15 15:31 | NUR ---
IV REMOVED, TELE BOX REMOVED AND SENT BACK TO ICU. PATIENT TAKEN TO CAR BY WHEEL CHAIR.
== END 2019-08-15 15:20 | disposition left against medical advice (07) | DRG 193 ==
LOC: ER 10:15 → TELE 10:16 → TELE-WESTW 15:30
PROVIDERS: ADMIT Nurse Practitioner Acute Care; ATTEND Family Medicine
DX: J18.9 Pneumonia, unspecified organism (principal); J96.21 Acute and chronic respiratory failure with hypoxia; J96.22 Acute and chronic respiratory failure with hypercapnia; J44.1 Chronic obstructive pulmonary disease with (acute) exacerbation; J44.0 Chronic obstructive pulmonary disease with (acute) lower respiratory infection; I10 Essential (primary) hypertension; D64.9 Anemia, unspecified; F31.9 Bipolar disorder, unspecified; I73.9 Peripheral vascular disease, unspecified; Z79.01 Long term (current) use of anticoagulants; Z79.899 Other long term (current) drug therapy; Z86.718 Personal history of other venous thrombosis and embolism; Z53.29 Procedure and treatment not carried out because of patient's decision for other reasons
CPT/HCPCS: 36415; 36600; 71045; 71275; 80048; 80053; 81001; 82805; 83605; 83880; 84484; 85025; 85379; 85610; 85730; 87040; 87070; 87205; 87804; 87880; 93005; 94640; 96365; 96366; 96368; 96375; G0378; J0696; J3490; J7060

== ENCOUNTER → 2019-12-11 | Emergency (ER) | payer MEDICARE, OTHER ==
[~2019-12-11] VITALS: Ht 152.4 cm; Wt 67.1 kg
[~2019-12-11] MED LIST changes: +ALBUTEROL SULF 2.5 MG/0.5ML(0.5%) NEB SOLN NEB ONE; +HYDROcodone-ACET 7.5/325MG TAB PO ONE; +IPRATROPIUM BROM 0.5 MG/2.5ML INH SOL NEB ONE; +PERCOT PO; +methylPREDNISolone SOD SUCC 125 MG/2 ML VL IV ONE
[2019-12-11 12:05] VITALS: BP 152/60
== END | disposition home or self-care (01) ==
LOC: ER 07:26
DX: M89.8X9 Other specified disorders of bone, unspecified site (principal); J44.1 Chronic obstructive pulmonary disease with (acute) exacerbation; M25.551 Pain in right hip; M54.5 Low back pain; I10 Essential (primary) hypertension; F17.210 Nicotine dependence, cigarettes, uncomplicated; Z88.8 Allergy status to other drugs, medicaments and biological substances
CPT/HCPCS: 72100; 94640; 96374; 99283; J2930; J7644; 93005

== ENCOUNTER 2020-06-19 11:41 | Emergency (ER) | payer MEDICARE, OTHER ==
[~2020-06-19] VITALS: Ht 162.6 cm; Wt 68.0 kg
[~2020-06-19 11:41] MED LIST changes: -ALBUTEROL SULF 2.5 MG/0.5ML(0.5%) NEB SOLN NEB ONE; -HYDROcodone-ACET 7.5/325MG TAB PO ONE; -IPRATROPIUM BROM 0.5 MG/2.5ML INH SOL NEB ONE; -methylPREDNISolone SOD SUCC 125 MG/2 ML VL IV ONE
[2020-06-19 12:39] LABS: Basophils # (auto) 0 10 ^3/uL (0-0.2); Basophils % (auto) 0.4 % (0.0-2.0); Eosinophils # (auto) 0.1 10 ^3/uL (0-0.8); Eosinophils % (auto) 1.1 % (0.0-7.0); Hematocrit 48.5 % (36.0-46.0); Hemoglobin 16.6 g/dL (12.2-16.2); Lymphocytes % (auto) 13.5 % (10.0-50.0); Mean Corpuscular Hemoglobin 31.9 pg (28.0-32.0); Mean Corpuscular Hgb Conc. 34.2 g/dL (32.0-36.0); Mean Corpuscular Volume 93.3 fL (80.0-100.0); Monocytes # (auto) 0.7 10 ^3/uL (0-1.3); Monocytes % (auto) 8.8 % (0.0-12.0); Neutrophils # (auto) 5.7 10 ^3/uL (1.6-8.6); Neutrophils % (auto) 76.2 % (37.0-80.0); Nucleated Red Blood Cells % 0.6 %; Platelet Count (auto) 199 10^3/uL (140-450); White Blood Cell 7.5 10^3/uL (4.4-10.8)
[2020-06-19] MEDS ORDERED: hydrALAZINE HCL 20 MG/ML VL IV ONE (13:00)
[2020-06-19 13:09] LABS: Albumin 3.4 g/dL (3.4-5.0); Anion Gap 3 (5-15); Blood Urea Nitrogen 9 mg/dL (7-18); Calcium 8.6 mg/dL (8.5-10.1); Carbon Dioxide 34 mmol/L (21-32); Chloride 95 mmol/L (98-107); Glucose 93 mg/dL (74-106); Lipase 78 U/L (73-393); Potassium 3.8 mmol/L (3.5-5.1); Sodium 132 mmol/L (136-145)
[2020-06-19 13:33] LABS: Alanine Aminotransferase 20 U/L (13-56); Alkaline Phosphatase 85 U/L (45-117); Aspartate Aminotransferase 19 U/L (15-37); Bilirubin, Total 0.5 mg/dL (0.2-1.0); GFR African American 197 mL/min; GFR Non-African American 163 mL/min
[2020-06-19] MEDS ORDERED: KETOROLAC TROMETH 30 MG/ML 1ML VIAL IV ONE (14:00)
[2020-06-19] MEDS ORDERED: MORPHINE SULFATE 4 MG/ML SYR/VIAL IV ONE (15:00)
[2020-06-19] MEDS ORDERED: ONDANSETRON HCL 4 MG/2 ML VIAL IV ONE (15:00)
[2020-06-19 15:13] LABS: Urine Amorphous Crystal FEW /hpf (None Seen); Urine Bacteria FEW /hpf (None Seen); Urine Blood Negative /uL (Negative); Urine Budding Yeast MODERATE /hpf (None Seen); Urine Specific Gravity 1.013 (1.001-1.035); Urine WBC 14 /hpf (0 - 5)
[2020-06-19] MEDS ORDERED: SODIUM CHLORIDE 0.9% 250 ML IV ONE (15:45)
[2020-06-19 16:19] VITALS: BP 108/86
== END 2020-06-19 17:30 | disposition home or self-care (01) ==
LOC: ER 11:41 → EDBD 11:41 → ER 17:30
DX: R10.84 Generalized abdominal pain (principal); J44.1 Chronic obstructive pulmonary disease with (acute) exacerbation; E11.9 Type 2 diabetes mellitus without complications; I10 Essential (primary) hypertension; Z90.49 Acquired absence of other specified parts of digestive tract; Z20.822 Contact with and (suspected) exposure to COVID-19; Z87.11 Personal history of peptic ulcer disease; Z88.6 Allergy status to analgesic agent
CPT/HCPCS: 36415; 71045; 74176; 80053; 81001; 83690; 84484; 85025; 87426; 93005; 96361; 96374; 96375; 99285; C9803; J0360; J1885; J2270; J2405; J7050; U0003

== ENCOUNTER 2022-01-17 01:53 | Emergency (ER) | payer MEDICARE, OTHER ==
[~2022-01-17] VITALS: Ht 152.4 cm; Wt 70.5 kg
[~2022-01-17 01:53] MED LIST changes: -METO-169 PO; +METO-289 PO; -VENL150C2 PO; +VENL150C3 PO
[2022-01-17] MEDS ORDERED: cloNIDine HCL 0.1 MG TAB PO ONE (02:30)
[2022-01-17 02:57] LABS: Basophils # (auto) 0.1 10 ^3/uL (0-0.2); Basophils % (auto) 1.2 % (0.0-2.0); Eosinophils # (auto) 0.2 10 ^3/uL (0-0.8); Eosinophils % (auto) 2.6 % (0.0-7.0); Hematocrit 43.7 % (36.0-46.0); Hemoglobin 14.7 g/dL (12.2-16.2); Lymphocytes # (auto) 2.4 10 ^3/uL (0.4-5.4); Lymphocytes % (auto) 32.8 % (10.0-50.0); Mean Corpuscular Hemoglobin 31.4 pg (28.0-32.0); Mean Corpuscular Hgb Conc. 33.6 g/dL (32.0-36.0); Mean Corpuscular Volume 93.6 fL (80.0-100.0); Monocytes # (auto) 0.6 10 ^3/uL (0-1.3); Monocytes % (auto) 7.8 % (0.0-12.0); Neutrophils % (auto) 55.6 % (37.0-80.0); Nucleated Red Blood Cells % 0.1 %; Red Blood Cells 4.67 10^6/uL (4.0-5.20); Red Cell Distribution Width 13.2 % (11.8-14.3); White Blood Cell 7.2 10^3/uL (4.4-10.8)
[2022-01-17 03:15] LABS: Albumin 3.8 g/dL (3.4-5.0); BUN/Creatinine Ratio 20.7; Calcium 8.9 mg/dL (8.5-10.1); Potassium 3.6 mmol/L (3.5-5.1)
[2022-01-17 03:18] LABS: Bilirubin, Total 0.6 mg/dL (0.2-1.0); Total Protein 7.3 g/dL (6.4-8.2)
[2022-01-17 05:51] VITALS: BP 159/101
== END 2022-01-17 05:55 | disposition home or self-care (01) ==
LOC: ER 01:53
DX: R10.84 Generalized abdominal pain (principal); J44.9 Chronic obstructive pulmonary disease, unspecified; E11.9 Type 2 diabetes mellitus without complications; I10 Essential (primary) hypertension; F17.210 Nicotine dependence, cigarettes, uncomplicated; Z90.49 Acquired absence of other specified parts of digestive tract; Z88.6 Allergy status to analgesic agent
CPT/HCPCS: 36415; 74176; 80053; 84484; 85025

== ENCOUNTER 2022-06-18 16:59 | Emergency (ER) | payer OTHER ==
[~2022-06-18] VITALS: Ht 162.6 cm; Wt 75.0 kg
[2022-06-18 18:00] LABS: Basophils # (auto) 0 10 ^3/uL (0-0.2); Basophils % (auto) 0.5 % (0.0-2.0); Eosinophils # (auto) 0.1 10 ^3/uL (0-0.8); Eosinophils % (auto) 1.8 % (0.0-7.0); Hematocrit 45.8 % (36.0-46.0); Hemoglobin 15.2 g/dL (12.2-16.2); Lymphocytes # (auto) 1.3 10 ^3/uL (0.4-5.4); Lymphocytes % (auto) 20.3 % (10.0-50.0); Mean Corpuscular Hemoglobin 31.4 pg (28.0-32.0); Mean Corpuscular Hgb Conc. 33.1 g/dL (32.0-36.0); Mean Corpuscular Volume 94.8 fL (80.0-100.0); Monocytes # (auto) 0.6 10 ^3/uL (0-1.3); Monocytes % (auto) 9.1 % (0.0-12.0); Neutrophils # (auto) 4.3 10 ^3/uL (1.6-8.6); Neutrophils % (auto) 68.3 % (37.0-80.0); Nucleated Red Blood Cells % 0.3 %; Red Blood Cells 4.83 10^6/uL (4.0-5.20); Red Cell Distribution Width 14.3 % (11.8-14.3); White Blood Cell 6.2 10^3/uL (4.4-10.8)
[2022-06-18 18:07] LABS: Albumin 3.4 g/dL (3.4-5.0); Potassium 4.2 mmol/L (3.5-5.1)
[2022-06-18 18:09] LABS: BUN/Creatinine Ratio 15.6
[2022-06-18 18:12] LABS: Bilirubin, Total 0.5 mg/dL (0.2-1.0); Total Protein 6.7 g/dL (6.4-8.2)
[2022-06-18] MEDS ORDERED: MORPHINE SULFATE 4 MG/ML SYR/VIAL IV ONE ×2 (19:15→20:30)
[2022-06-18 20:17] LABS: INR 0.97 (0.9-1.15)
[2022-06-18 20:50] VITALS: BP 165/87
== END 2022-06-18 21:04 | disposition short-term general hospital (02) ==
LOC: EDBD 16:59 → ER 17:03
DX: S06.380A Contusion, laceration, and hemorrhage of brainstem without loss of consciousness, initial encounter (principal); I16.1 Hypertensive emergency; I10 Essential (primary) hypertension; J44.9 Chronic obstructive pulmonary disease, unspecified; E11.9 Type 2 diabetes mellitus without complications; Z90.49 Acquired absence of other specified parts of digestive tract; Z86.73 Personal history of transient ischemic attack (TIA), and cerebral infarction without residual deficits; X58.XXXA Exposure to other specified factors, initial encounter; Y93.89 Activity, other specified; Y92.89 Other specified places as the place of occurrence of the external cause; Y99.8 Other external cause status
CPT/HCPCS: 36415; 70450; 71045; 80053; 84484; 85025; 85610; 93005; 96365; 96375; 96376; 99291; 99292; J2270

== ENCOUNTER 2023-10-30 14:03 | Inpatient (IN) | payer OTHER ==
[~2023-10-30] VITALS: Ht 152.4 cm; Wt 72.1 kg
[2023-10-30 15:42] LABS: Basophils # (auto) 0.1 10 ^3/uL (0-0.2); Eosinophils # (auto) 0.1 10 ^3/uL (0-0.8)
[2023-10-30 15:44] LABS: Basophils % (auto) 0.7 % (0.0-2.0); Eosinophils % (auto) 0.7 % (0.0-7.0); Hematocrit 54.1 % (36.0-46.0); Hemoglobin 17.3 g/dL (12.2-16.2); Lymphocytes # (auto) 1.4 10 ^3/uL (0.4-5.4); Lymphocytes % (auto) 16.9 % (10.0-50.0); Mean Corpuscular Hemoglobin 29.5 pg (28.0-32.0); Mean Corpuscular Hgb Conc. 31.9 g/dL (32.0-36.0); Mean Corpuscular Volume 92.4 fL (80.0-100.0); Monocytes # (auto) 0.8 10 ^3/uL (0-1.3); Monocytes % (auto) 10.1 % (0.0-12.0); Neutrophils # (auto) 5.8 10 ^3/uL (1.6-8.6); Neutrophils % (auto) 71.6 % (37.0-80.0); Nucleated Red Blood Cells % 0.8 %; Red Blood Cells 5.86 10^6/uL (4.0-5.20); Red Cell Distribution Width 17.3 % (11.8-14.3); White Blood Cell 8.1 10^3/uL (4.4-10.8)
[2023-10-30 16:07] LABS: Alanine Aminotransferase 12 U/L (7-40); Albumin 3.6 g/dL (3.2-4.8); Alkaline Phosphatase 87 U/L (46-116); Anion Gap 1 (5-15); Aspartate Aminotransferase 32 U/L (13-40); BUN/Creatinine Ratio 21.8 (10.0-20.0); Blood Urea Nitrogen 12 mg/dL (9-23); Calcium 9.3 mg/dL (8.7-10.4); Carbon Dioxide 36 mmol/L (20-30); Chloride 99 mmol/L (98-107); Glucose 109 mg/dL (74-106); Potassium 5.3 mmol/L (3.5-5.1); Sodium 136 mmol/L (136-145)
[2023-10-30 16:08] LABS: Bilirubin, Total 0.6 mg/dL (0.2-1.0); Total Protein 7.1 g/dL (5.7-8.2)
[2023-10-30] MEDS: ALBUTEROL SULF 2.5 MG/0.5ML(0.5%) NEB SOLN NEB ONE (16:47)
[2023-10-30 18:34] VITALS: RESP 26; O2SAT 89
[2023-10-30 19:30] VITALS: RESP 17; O2SAT 91
[2023-10-30 20:45] LABS: Urine Bacteria None Seen /hpf (None Seen)
[2023-10-30 20:52] VITALS: BP 145/74; PULSE 95; RESP 17; TEMP 97.9; O2SAT 91
[2023-10-30 21:18] LABS: Chloride 101 mmol/L (98-107); Potassium 4.6 mmol/L (3.5-5.1); Sodium 137 mmol/L (136-145)
[2023-10-30 21:19] LABS: Anion Gap 0 (5-15); Calcium 9.1 mg/dL (8.5-10.1); Carbon Dioxide 36 mmol/L (20-30)
[2023-10-30 21:19] LABS: Urine Blood Negative /uL (Negative); Urine Clarity Clear (Clear); Urine Color Light-Yellow (Yellow); Urine Protein, UAD Negative (Negative); Urine Specific Gravity 1.009 (1.001-1.035); Urine Urobilinogen Normal (Negative); Urine WBC 1 /hpf (0 - 5); Urine pH 5.5 (5.0-9.0)
[2023-10-30 21:24] LABS: BUN/Creatinine Ratio 11.1 (10.0-20.0); Blood Urea Nitrogen 6 mg/dL (9-23); Glucose 96 mg/dL (74-106)
[2023-10-30 22:08] VITALS: PULSE 102; RESP 20; O2SAT 87
[2023-10-30] MEDS: IPRATROPIUM BROM 0.5 MG/2.5ML INH SOL NEB SCH (22:08)
[2023-10-30 22:18] VITALS: PULSE 105; RESP 20; O2SAT 88
[2023-10-30] MEDS ORDERED: hydrALAZINE HCL 20 MG/ML VL IV PRN (23:15)
[2023-10-30] MEDS ORDERED: ACETAMINOPHEN 325 MG TAB PO PRN (23:15)
[2023-10-30] MEDS ORDERED: ONDANSETRON HCL 4 MG/2 ML VIAL IV PRN (23:15)
[2023-10-31] VITALS (19 sets, daily range): BP systolic 130–138; BP diastolic 57–84; PULSE 86–101; RESP 16–22; TEMP 97.5–98; O2SAT 91–98
[2023-10-31 00:07] LABS: INR 1.21 (0.9-1.15); Prothrombin Time 12.6 sec (9.3-11.8)
[2023-10-31] MEDS: methylPREDNISolone SOD SUCC 40 MG/ML VL IV SCH ×2 (00:13→13:40)
[2023-10-31] MEDS: IOHEXOL 350 MG/ML 100ML IJ ONE (03:37)
[2023-10-31] MEDS: HYDROcodone-ACET 5/325MG TAB PO PRN (05:31)
[2023-10-31 05:34] LABS: Hematocrit 50.3 % (36.0-46.0); Hemoglobin 16.2 g/dL (12.2-16.2); Mean Corpuscular Hemoglobin 29.5 pg (28.0-32.0); Mean Corpuscular Hgb Conc. 32.1 g/dL (32.0-36.0); Mean Corpuscular Volume 91.8 fL (80.0-100.0); Red Blood Cells 5.48 10^6/uL (4.0-5.20); Red Cell Distribution Width 17.3 % (11.8-14.3); White Blood Cell 6.9 10^3/uL (4.4-10.8)
[2023-10-31 05:35] LABS: Chloride 101 mmol/L (98-107); Sodium 138 mmol/L (136-145)
[2023-10-31 05:36] LABS: Anion Gap 2 (5-15); Calcium 9.1 mg/dL (8.7-10.4); Carbon Dioxide 35 mmol/L (20-30)
[2023-10-31 05:41] LABS: Band Neutrophils % (manual) 0; Basophils % (manual) 0 (0.0-2.0); Blast Cells 0; Eosinophils % (manual) 0 (0-7); Glucose 149 mg/dL (74-106); Metamyelocytes % 0; Myelocytes % 0; Promyelocytes % 0; Reactive Lymphocytes 0
[2023-10-31 05:42] LABS: BUN/Creatinine Ratio 9.1 (10.0-20.0); Blood Urea Nitrogen 6 mg/dL (9-23)
[2023-10-31 06:20] LABS: Lymphocytes % (manual) 2 (10.0-50.0); Monocytes % (manual) 1 (0-12)
[2023-10-31 06:21] LABS: Anisocytosis Slight; Platelet Estimate Adequate; Stomatocytes Few
[2023-10-31] MEDS: CLINDAMYCIN 600MG IV 50 ML IV SCH (06:28)
[2023-10-31] MEDS: PANTOPRAZOLE 40 MG/10 ML VIAL INJ IV SCH (09:52)
[2023-10-31] MEDS: ENOXAPARIN SOD 40 MG/0.4 ML SYRINGE SC SCH (09:52)
[2023-10-31] MEDS: METOPROLOL SUCCINATE XL 50 MG TAB PO SCH (10:12)
[2023-10-31] MEDS ORDERED: QUET200T4 PO (13:07)
[2023-10-31] MEDS ORDERED: POTA10IN6 IV (13:08)
[2023-10-31] MEDS ORDERED: ZOFR4T PO (13:09)
[2023-10-31] MEDS ORDERED: POTA-228 PO (16:14)
[2023-10-31] MEDS ORDERED: VENL75CA78 PO (16:14)
[2023-10-31] MEDS ORDERED: ONDA-188 PO (16:17)
[2023-10-31] MEDS ORDERED: OMEP20TA PO (16:29)
[2023-10-31] MEDS ORDERED: HYDR-4795 PO (16:29)
[2023-10-31] MEDS ORDERED: METO1TAB77 PO (16:29)
[2023-10-31] MEDS: ALBUTEROL SULF 2.5 MG/0.5ML(0.5%) NEB SOLN NEB SCH (19:03)
[2023-10-31] MEDS: BUDESONIDE (INHALATION) 0.5 MG/2 ML NEB NEB SCH (19:05)
[2023-11-01] VITALS (19 sets, daily range): BP systolic 132–138; BP diastolic 72–83; PULSE 79–96; RESP 16–23; TEMP 97.9–98.4; O2SAT 90–99
[2023-11-01] MEDS: ALBUTEROL SULF 2.5 MG/0.5ML(0.5%) NEB SOLN NEB PRN (07:37)
[2023-11-01] MEDS ORDERED: QUEtiapine FUMARATE 100 MG TAB PO SCH ×2 (10:00→22:00)
[2023-11-01] MEDS: QUEtiapine FUMARATE 100 MG TAB PO ONE (10:00)
[2023-11-01] MEDS: FAMOTIDINE 20 MG TAB PO SCH (10:01)
[2023-11-01] MEDS: dilTIAZem HCL 180MG ER CAP PO SCH (10:02)
[2023-11-01] MEDS ORDERED: ALBUTEROL SULF 2.5 MG/0.5ML(0.5%) NEB SOLN NEB SCH (18:45)
[2023-11-01] MEDS: APIXABAN 5 MG TAB PO SCH (20:50)
[2023-11-01] MEDS ORDERED: METOPROLOL TARTRATE 50 MG TAB PO SCH (22:00)
[2023-11-01] MEDS: METOPROLOL TARTRATE 50 MG TAB PO SCH (22:19)
[2023-11-02] VITALS (21 sets, daily range): BP systolic 124–144; BP diastolic 61–79; PULSE 71–96; RESP 16–22; TEMP 97.6–98; O2SAT 90–98
[2023-11-02] MEDS: FUROSEMIDE 20 MG TAB PO SCH (05:52)
[2023-11-02] MEDS: ALBUTEROL SULF 2.5 MG/0.5ML(0.5%) NEB SOLN NEB SCH (05:57)
[2023-11-02] MEDS ORDERED: ALBUTEROL SULF 2.5 MG/0.5ML(0.5%) NEB SOLN NEB SCH (06:00)
[2023-11-02 06:56] LABS: Basophils # (auto) 0 10 ^3/uL (0-0.2); Basophils % (auto) 0.1 % (0.0-2.0); Eosinophils # (auto) 0 10 ^3/uL (0-0.8); Hematocrit 48.6 % (36.0-46.0); Hemoglobin 15.5 g/dL (12.2-16.2); Lymphocytes # (auto) 0.5 10 ^3/uL (0.4-5.4); Lymphocytes % (auto) 5.8 % (10.0-50.0); Mean Corpuscular Hemoglobin 28.5 pg (28.0-32.0); Mean Corpuscular Hgb Conc. 31.9 g/dL (32.0-36.0); Mean Corpuscular Volume 89.4 fL (80.0-100.0); Monocytes # (auto) 0.2 10 ^3/uL (0-1.3); Monocytes % (auto) 2.8 % (0.0-12.0); Neutrophils # (auto) 7.4 10 ^3/uL (1.6-8.6); Neutrophils % (auto) 91.3 % (37.0-80.0); Nucleated Red Blood Cells % 0.4 %; Red Blood Cells 5.44 10^6/uL (4.0-5.20); Red Cell Distribution Width 17.3 % (11.8-14.3); White Blood Cell 8.1 10^3/uL (4.4-10.8)
[2023-11-02 06:59] LABS: INR 1.21 (0.9-1.15); Partial Thromboplastin Time 30.7 SEC (24.5-34.5); Prothrombin Time 12.6 sec (9.3-11.8)
[2023-11-02 07:30] LABS: Chloride 101 mmol/L (98-107); Potassium 4.7 mmol/L (3.5-5.1); Sodium 135 mmol/L (136-145)
[2023-11-02 07:31] LABS: Anion Gap 2 (5-15); Carbon Dioxide 32 mmol/L (20-30)
[2023-11-02 07:32] LABS: Calcium 9.2 mg/dL (8.5-10.1)
[2023-11-02 07:36] LABS: Glucose 114 mg/dL (74-106)
[2023-11-02 07:37] LABS: Blood Urea Nitrogen 9 mg/dL (9-23)
[2023-11-02] MEDS: PANTOPRAZOLE 40 MG TAB PO SCH (09:39)
[2023-11-02] MEDS: VENLAFAXINE HCL 37.5mg XR cap PO SCH (09:39)
[2023-11-02] MEDS ORDERED: REGADENOSON 0.4 MG/5 ML SYRG IV ONE (11:42)
[2023-11-02] MEDS: REGADENOSON 0.4 MG/5 ML SYRG IV ONE (12:03)
[2023-11-02] MEDS: QUEtiapine FUMARATE 100 MG TAB PO SCH (21:53)
[2023-11-03] VITALS (18 sets, daily range): BP systolic 121–148; BP diastolic 67–79; PULSE 66–89; RESP 18–21; TEMP 97.7–98; O2SAT 90–98
[2023-11-03] MEDS ORDERED: POTA-228 PO (12:05)
[2023-11-03] MEDS ORDERED: ASPI81TA28 PO (12:05)
[2023-11-03] MEDS ORDERED: ATOR-507 PO (12:05)
[2023-11-03] MEDS ORDERED: PRED20TA2 PO (12:05)
[2023-11-03] MEDS ORDERED: IPRA0.00 IN (12:05)
[2023-11-03] MEDS ORDERED: ALBU108A5 IN (12:05)
[2023-11-03] MEDS ORDERED: FURO1TAB31 PO (12:05)
[2023-11-03] MEDS ORDERED: METO1TAB77 PO (12:05)
[2023-11-03] MEDS ORDERED: APIX5TAB PO (12:05)
[2023-11-03] MEDS ORDERED: LOS25T PO (12:05)
[2023-11-04] VITALS (10 sets, daily range): BP systolic 115–142; BP diastolic 70–77; PULSE 69–97; RESP 16–20; TEMP 97.3–98; O2SAT 73–98
[2023-11-08] MEDS ORDERED: APIXABAN 5 MG TAB PO SCH (22:00)
== END 2023-11-04 13:10 | disposition home or self-care (01) | DRG 299 ==
LOC: EDBD 14:03 → ER 14:03 → TELE 23:20 → TELE-WESTW 10-31 08:31
PROVIDERS: ADMIT Nurse Practitioner Family; ATTEND Internal Medicine
DX: I82.411 Acute embolism and thrombosis of right femoral vein (principal); J96.21 Acute and chronic respiratory failure with hypoxia; J44.1 Chronic obstructive pulmonary disease with (acute) exacerbation; J98.11 Atelectasis; L03.115 Cellulitis of right lower limb; I47.10 Supraventricular tachycardia, unspecified; I82.431 Acute embolism and thrombosis of right popliteal vein; R62.7 Adult failure to thrive; Z68.31 Body mass index [BMI] 31.0-31.9, adult; E66.9 Obesity, unspecified; E11.51 Type 2 diabetes mellitus with diabetic peripheral angiopathy without gangrene; R91.1 Solitary pulmonary nodule; I25.10 Atherosclerotic heart disease of native coronary artery without angina pectoris; F17.210 Nicotine dependence, cigarettes, uncomplicated; I10 Essential (primary) hypertension; Z86.73 Personal history of transient ischemic attack (TIA), and cerebral infarction without residual deficits; Z79.84 Long term (current) use of oral hypoglycemic drugs; Z80.9 Family history of malignant neoplasm, unspecified; Z82.3 Family history of stroke; Z82.49 Family history of ischemic heart disease and other diseases of the circulatory system; Z99.81 Dependence on supplemental oxygen; Z87.11 Personal history of peptic ulcer disease
CPT/HCPCS: 36415; 36600; 71045; 71275; 76705; 78452; 80048; 80053; 81001; 82805; 83880; 84484; 85007; 85025; 85027; 85379; 85610; 85730; 93005; 93017; 93306; 93970; 94640; 97110; 97116; 97163; C9113; G0378; J3490

== ENCOUNTER 2024-01-09 18:52 | Emergency (ER) | payer OTHER ==
[~2024-01-09] VITALS: Ht 152.4 cm; Wt 70.0 kg
[~2024-01-09 18:52] MED LIST changes: +ALBU108A5 IN; +ALBU108A5 INH; -ALBUAER3 IN; +ASPI81TA28 PO; +ATOR-507 PO; +CEPH500C PO; -CLON0.1T PO; -FLUT110A INH; +FURO1TAB31 PO; +HYDR-4795 PO; +IPRA0.00 IN; +IPRA0.00 INH; +IPRIH INH; +LOS25T PO; -METO-289 PO; +METO1TAB77 PO; +OMEP20TA PO; +ONDA-188 PO; -PERCOT PO; +POTA-228 PO; +PRED20TA2 PO; +QUET200T4 PO; -QUET300T14 PO; +VARE1TAB32 PO; -VENL150C3 PO; +VENL75CA78 PO
[2024-01-09] MEDS ORDERED: PIPERACILLIN-TAZOB 3.375GM 100 ML IV ONE (20:15)
[2024-01-09 20:53] LABS: Basophils # (auto) 0 10 ^3/uL (0-0.2); Basophils % (auto) 0.5 % (0.0-2.0); Eosinophils # (auto) 0.2 10 ^3/uL (0-0.8); Hemoglobin 14.6 g/dL (12.2-16.2); Lymphocytes % (auto) 25.3 % (10.0-50.0); Mean Corpuscular Hemoglobin 30.5 pg (28.0-32.0); Mean Corpuscular Hgb Conc. 33.3 g/dL (32.0-36.0); Mean Corpuscular Volume 91.5 fL (80.0-100.0); Monocytes # (auto) 0.7 10 ^3/uL (0-1.3); Monocytes % (auto) 8.8 % (0.0-12.0); Neutrophils % (auto) 62.4 % (37.0-80.0); Nucleated Red Blood Cells % 0.1 %; Platelet Count (auto) 202 10^3/uL (140-450); Red Blood Cells 4.81 10^6/uL (4.0-5.20); Red Cell Distribution Width 18.6 % (11.8-14.3)
[2024-01-09 21:10] LABS: Albumin 4.2 g/dL (3.2-4.8); Alkaline Phosphatase 91 U/L (46-116); Aspartate Aminotransferase 15 U/L (13-40); BUN/Creatinine Ratio 15.1 (10.0-20.0); Bilirubin, Total 0.7 mg/dL (0.2-1.0); Blood Urea Nitrogen 8 mg/dL (9-23); Calcium 10.1 mg/dL (8.7-10.4); Chloride 97 mmol/L (98-107); Glucose 101 mg/dL (74-106); Potassium 3.9 mmol/L (3.5-5.1); Sodium 138 mmol/L (136-145); Total Protein 7.4 g/dL (5.7-8.2)
[2024-01-09 21:16] LABS: Alanine Aminotransferase < 9 U/L (7-40); Anion Gap 0.99999 (5-15)
[2024-01-09 21:17] LABS: Carbon Dioxide > 40 mmol/L (20-30); INR 1.01 (0.9-1.15); Partial Thromboplastin Time 28.3 SEC (24.5-34.5); Prothrombin Time 10.7 sec (9.3-11.8)
[2024-01-09] MEDS ORDERED: APIXABAN 5 MG TAB PO SCH (22:00)
[2024-01-09 23:25] VITALS: BP 141/76; PULSE 58; RESP 16; O2SAT 71
== END 2024-01-10 00:23 | disposition left against medical advice (07) ==
LOC: ER 18:52
DX: L03.116 Cellulitis of left lower limb (principal); L03.115 Cellulitis of right lower limb; L02.416 Cutaneous abscess of left lower limb; L02.415 Cutaneous abscess of right lower limb; R06.89 Other abnormalities of breathing; I10 Essential (primary) hypertension; E11.9 Type 2 diabetes mellitus without complications; J44.9 Chronic obstructive pulmonary disease, unspecified; F32.9 Major depressive disorder, single episode, unspecified; F17.210 Nicotine dependence, cigarettes, uncomplicated; Z98.890 Other specified postprocedural states; Z88.8 Allergy status to other drugs, medicaments and biological substances; Z79.899 Other long term (current) drug therapy
CPT/HCPCS: 36415; 71045; 80053; 83880; 84484; 85025; 85379; 85610; 85730; 93005; 93970

== ENCOUNTER 2024-01-10 07:49 | Inpatient (IN) | payer OTHER ==
[~2024-01-10] VITALS: Ht 152.4 cm; Wt 74.0 kg
[2024-01-10 08:39] VITALS: PULSE 69; RESP 22; O2SAT 93
[2024-01-10] MEDS: IPRATROPIUM BROM 0.5 MG/2.5ML INH SOL NEB ONE (11:15)
[2024-01-10] MEDS: methylPREDNISolone SOD SUCC 125 MG/2 ML VL IV ONE (11:23)
[2024-01-10] MEDS: FUROSEMIDE 40 MG/4 ML VIAL IV ONE (11:24)
[2024-01-10 11:48] LABS: Basophils # (auto) 0 10 ^3/uL (0-0.2); Basophils % (auto) 0.4 % (0.0-2.0); Eosinophils # (auto) 0.2 10 ^3/uL (0-0.8); Eosinophils % (auto) 3.2 % (0.0-7.0); Hematocrit 39.6 % (36.0-46.0); Hemoglobin 12.9 g/dL (12.2-16.2); Lymphocytes # (auto) 1.9 10 ^3/uL (0.4-5.4); Lymphocytes % (auto) 28.8 % (10.0-50.0); Mean Corpuscular Hemoglobin 30.2 pg (28.0-32.0); Mean Corpuscular Hgb Conc. 32.6 g/dL (32.0-36.0); Mean Corpuscular Volume 92.5 fL (80.0-100.0); Monocytes # (auto) 0.7 10 ^3/uL (0-1.3); Monocytes % (auto) 10.8 % (0.0-12.0); Neutrophils # (auto) 3.8 10 ^3/uL (1.6-8.6); Neutrophils % (auto) 56.8 % (37.0-80.0); Nucleated Red Blood Cells % 0.1 %; Platelet Count (auto) 171 10^3/uL (140-450); Red Blood Cells 4.28 10^6/uL (4.0-5.20); Red Cell Distribution Width 18.6 % (11.8-14.3); White Blood Cell 6.7 10^3/uL (4.4-10.8)
[2024-01-10 11:56] LABS: Urine Bacteria None Seen /hpf (None Seen)
[2024-01-10 12:32] LABS: Erythrocyte Sedimentation Rate 15 mm/hr (0-20)
[2024-01-10 12:35] LABS: Urine Blood Negative /uL (Negative); Urine Clarity Clear (Clear); Urine Color Colorless (Yellow); Urine Protein, UAD Negative (Negative); Urine Specific Gravity 1.006 (1.001-1.035); Urine Urobilinogen Normal (Negative); Urine WBC <1 /hpf (0 - 5); Urine pH 6.5 (5.0-9.0)
[2024-01-10 12:41] LABS: Albumin 3.6 g/dL (3.2-4.8); Alkaline Phosphatase 78 U/L (46-116); Anion Gap 1 (5-15); Aspartate Aminotransferase 16 U/L (13-40); BUN/Creatinine Ratio 16.3 (10.0-20.0); Bilirubin, Total 0.5 mg/dL (0.2-1.0); Blood Urea Nitrogen 8 mg/dL (9-23); Calcium 9.6 mg/dL (8.7-10.4); Carbon Dioxide 39 mmol/L (20-30); Chloride 99 mmol/L (98-107); Glucose 88 mg/dL (74-106); Potassium 3.9 mmol/L (3.5-5.1); Sodium 139 mmol/L (136-145); Total Protein 6.3 g/dL (5.7-8.2)
[2024-01-10 12:43] LABS: Alanine Aminotransferase < 9 U/L (7-40)
[2024-01-10 12:50] LABS: CRP High Sensitivity 2.52 mg/dL (<1.0)
[2024-01-10] MEDS ORDERED: MORPHINE SULFATE INJ 2 MG/ml SYRG IV PRN (13:00)
[2024-01-10] MEDS ORDERED: ONDANSETRON HCL 4 MG/2 ML VIAL IV PRN (13:00)
[2024-01-10] MEDS ORDERED: ACETAMINOPHEN 325 MG TAB PO PRN (13:00)
[2024-01-10] MEDS ORDERED: NITROGLYCERIN 0.4 MG SL TAB SL PRN (13:00)
[2024-01-10] MEDS ORDERED: CEFEPIME 1GM/ 50ML 50 ML IV SCH (14:00)
[2024-01-10] MEDS: ENOXAPARIN SOD 80 MG/0.8ML SYRINGE SC ONE (15:00)
[2024-01-10] MEDS: ENOXAPARIN SOD 100 MG/1 ML SYRINGE SC ONE (16:30)
[2024-01-10] MEDS: CEFEPIME 1GM/ 50ML 50 ML IV ONE (16:30)
[2024-01-10] MEDS: MORPHINE SULFATE INJ 2 MG/ml SYRG IV PRN (17:46)
[2024-01-10] MEDS: FUROSEMIDE 40 MG/4 ML VIAL IV SCH (18:30)
[2024-01-10 19:30] VITALS: RESP 20; O2SAT 91
[2024-01-10] MEDS ORDERED: ENOXAPARIN SOD 100 MG/1 ML SYRINGE SC SCH (22:00)
[2024-01-10] MEDS: QUEtiapine FUMARATE 25 MG TAB PO SCH (22:36)
[2024-01-10] MEDS: CEFEPIME 1GM/ 50ML 50 ML IV SCH (22:36)
[2024-01-11] VITALS (9 sets, daily range): BP systolic 123–153; BP diastolic 74–87; PULSE 60–111; RESP 16–20; TEMP 97.4–98; O2SAT 90–95
[2024-01-11] MEDS: ENOXAPARIN SOD 80 MG/0.8ML SYRINGE SC SCH (04:53)
[2024-01-12] VITALS (8 sets, daily range): BP systolic 131–154; BP diastolic 85–94; PULSE 99–152; RESP 18–20; TEMP 36.8; O2SAT 93–97
[2024-01-12] MEDS: HYDROcodone-ACET 5/325MG TAB PO PRN (09:40)
[2024-01-12] MEDS ORDERED: AUG875T PO (13:41)
[2024-01-12] MEDS ORDERED: APIX5TAB PO (13:41)
== END 2024-01-12 18:00 | disposition home or self-care (01) | DRG 299 ==
LOC: ER 07:49 → TELE 12:56 → TELE-WESTW 23:08
PROVIDERS: ADMIT Internal Medicine; ATTEND Internal Medicine
DX: I82.411 Acute embolism and thrombosis of right femoral vein (principal); J96.20 Acute and chronic respiratory failure, unspecified whether with hypoxia or hypercapnia; L03.115 Cellulitis of right lower limb; L03.116 Cellulitis of left lower limb; I82.431 Acute embolism and thrombosis of right popliteal vein; I10 Essential (primary) hypertension; J44.9 Chronic obstructive pulmonary disease, unspecified; E11.9 Type 2 diabetes mellitus without complications; Z79.01 Long term (current) use of anticoagulants; Z82.3 Family history of stroke; Z82.49 Family history of ischemic heart disease and other diseases of the circulatory system; Z99.81 Dependence on supplemental oxygen; Z91.199 Patient's noncompliance with other medical treatment and regimen due to unspecified reason
CPT/HCPCS: 36415; 71045; 80053; 81001; 83605; 83880; 84484; 85025; 85652; 86141; 87081; 93005; 93970; 94640; 96365; 96366; 96372; 96375; 96376; 97110; 97163; 99291; G0378